=== PATIENT | female | born 1975 | race Caucasian/White ===

== ENCOUNTER 2021-07-01 19:30 | Outpatient (CLI) | payer BC | END 2021-07-01 19:31 | disposition home or self-care (01) | LOC: SLEEPLAB 19:30 | PROVIDERS: ATTEND Otolaryngology Plastic Surgery within the Head & Neck | DX: G47.33 Obstructive sleep apnea (adult) (pediatric) (principal); R53.83 Other fatigue; R09.89 Other specified symptoms and signs involving the circulatory and respiratory systems; R06.83 Snoring; G47.10 Hypersomnia, unspecified; F41.9 Anxiety disorder, unspecified; G47.00 Insomnia, unspecified | CPT/HCPCS: 95810 ==